=== PATIENT | male | born 1985 | race Caucasian/White ===

== ENCOUNTER → 2022-04-24 | Outpatient (CLI) | payer BC ==
--- NOTE | 2022-04-26 11:18 | US ---
EXAMINATION TYPE: US scrotum with doppler. Grayscale and color Doppler Duplex imaging performed of ed benjamin scrotum. DATE OF EXAM: 04/24/2022 COMPARISON: NONE CLINICAL HISTORY: N44.2 SCROTAL CYST. Scrotal cyst. EXAM MEASUREMENTS: TESTICLES: Right Testicle: 5.3 x 3.6 x 2.9 cm Left Testicle: 4.4 x 3.3 x 2.7 cm EPIDIDYMIS HEAD: Right Epididymis: 1.0 x 1.1 x 1.6 cm Left Epididymis: 0.6 x 1.0 x 1.3 cm Doppler performed to assess for testicular vascularity; bilateral color flow and waveforms are seen. Testicular echotexture is homogenous and symmetric Presence of hydroceles: On right: 2.4 x 2.8 x 0.7 cm. On left: 2.6 x 1.4 x 0.8 cm. Presence of varicoceles: Prominent vessels seen on the right measure 3 mm. Prominent vessels seen on the left measure 3.4 mm. Scanned patient's area of concern midline, just inferior to the testicles:Complex area seen measuri ng 1.7 x 1.2 x 0.9 cm. IMPRESSION: Small hydroceles. No evident intratesticular mass. Nonspecific scrotal focus of hypoechog enicity, follow-up clinically, questionable clinical significance, consider inclusion cyst, follow-up with imaging as indicated.
== END | disposition home or self-care (01) ==
LOC: RADUSWWP 16:44
PROVIDERS: ATTEND Family Medicine
DX: N44.2 Benign cyst of testis (principal)
CPT/HCPCS: 76870; 93975

== ENCOUNTER 2023-12-07 12:56 | Emergency (ER) | payer BC ==
[2023-12-07 13:28] LABS: HCT 41.8 % (39.0-53.0); HGB 13.9 gm/dL (13.0-17.5); MCH 30.2 pg (25.0-35.0); MCHC 33.2 g/dL (31.0-37.0); MCV 91.2 fL (80.0-100.0); Mean Platelet Volume 7.1; Platelet Count 305 k/uL (150-450); RBC 4.59 m/uL (4.30-5.90); WBC 8.1 k/uL (3.8-10.6)
--- NOTE | 2023-12-07 13:32 | ED ---
General Adult HPI - General Chief complaint: Neuro Symptoms/Deficit Stated complaint: Poss Heart Attack Time Seen by Provider: 12/07/23 13:15 Source: patient, RN notes reviewed, old records reviewed Mode of arrival: ambulatory Limitations: no limitations - History of Present Illness Initial comments: 38-year-old male presenting for evaluation of left arm numbness and tingling. Symptoms began just prior to arrival. This is associated with some central chest tightness. No prior history of CVA or CAD. Patient is a current smoker. No associated diaphoresis or vomiting. - Related Data Home Medications Medication Instructions Recorded Confirmed Atorvastatin [Lipitor] 40 mg PO DAILY 12/07/23 12/07/23 Levothyroxine Sodium [Synthroid] 75 mcg PO DAILY 12/07/23 12/07/23 Allergies Allergy/AdvReac Type Severity Reaction Status Date / Time No Known Allergies Allergy Verified 12/07/23 15:27 Review of Systems ROS Statement: Those systems with pertinent positive or pertinent negative responses have been documented in the HPI. ROS Other: All systems not noted in ROS Statement are negative. Past Medical History Past Medical History: Hyperlipidemia, Thyroid Disorder Past Surgical History: Hernia Repair Additional Past Surgical History / Comment(s): anal suregery Smoking Status: Current every day smoker General Exam Limitations: no limitations General appearance: alert, in no apparent distress Head exam: Present: atraumatic, normocephalic Eye exam: Present: normal appearance, PERRL ENT exam: Present: normal exam Neck exam: Present: normal inspection. Absent: tenderness, meningismus Respiratory exam: Present: normal lung sounds bilaterally. Absent: respiratory distress, wheezes Cardiovascular Exam: Present: regular rate, normal rhythm GI/Abdominal exam: Present: soft. Absent: distended, tenderness, guarding Neurological exam: Present: alert, oriented X3, CN II-XII intact, other (NIH of 0). Absent: motor sensory deficit Psychiatric exam: Present: normal affect, normal mood Skin exam: Present: warm, dry, intact. Absent: cyanosis, diaphoretic Course Vital Signs 12/07/23 12/07/23 12/07/23 13:03 14:28 16:32 Temperature 98.3 F Pulse Rate 86 70 71 Respiratory 20 20 18 Rate Blood Pressure 170/79 150/91 137/86 O2 Sat by Pulse 99 98 100 Oximetry 12/07/23 17:43 Temperature 97.6 F Pulse Rate 72 Respiratory 18 Rate Blood Pressure 137/85 O2 Sat by Pulse 97 Oximetry Medical Decision Making - Medical Decision Making Was pt. sent in by a medical professional or institution (ROBERTA Villalta, CCTV TECHNICIAN, urgent care, hospital, or senior living...) When possible be specific @ -No Did you speak to anyone other than the patient for history (EMS, parent, family, police, friend...)? What history was obtained from this source @ -No Did you review nursing and triage notes (agree or disagree)? Why? @ -I reviewed and agree with nursing and triage notes Were old charts reviewed (outside hosp., previous admission, EMS record, old E KG, old radiological studies, urgent care reports/EKG's, senior living records)? Report findings @ -No old charts were reviewed Differential Diagnosis (chest pain, altered mental status, abdominal pain women, abdominal pain men, vaginal bleeding, weakness, fever, dyspnea, syncope, headache, dizziness, GI bleed, back pain, seizure, CVA, palpatations, mental health, musculoskeletal)? @ -Differential Chest Pain: Stable Angina, Unstable Angina, STEMI, NSTEMI Aortic Dissection, Pneumothorax, Musculoskeletal, Esophageal Spasm GERD, Cholecystitis, Pancreatitis, Zoster, this is not meant to be an all-inclusive list. EKG interpreted by me (3pts min.). @ -Sinus rhythm rate of 89, [place] interval 168, QRS duration 104, QTc [address] segment elevation. X-rays interpreted by me (1pt min.). @Chest x-ray negative for acute cardiopulmonary findings. CT interpreted by me (1pt min.). @ -CT brain negative for intracranial hemorrhage or mass effect U/S interpreted by me (1pt. min.). @ -None done What testing was considered but not performed or refused? (CT, X-rays, U/S, labs)? Why? @ -None What meds were considered but not given or refused? Why? @ -None Did you discuss the management of the patient with other professionals (professionals i.e. ROBERTA Villalta, CCTV TECHNICIAN, lab, RT, psych nurse, child protective services social worker, animal care assistant, teacher, corporate responsibility officer, catalytic case operator)? Give summary @ -No Was smoking cessation discussed for >3mins.? @ -No Was critical care preformed (if so, how long)? @ -No Were there social determinants of health that impacted care today? How? (Homelessness, low income, unemployed, alcoholism, drug addiction, transportation, low edu. Level, literacy, decrease access to med. care, longterm, rehab)? @ -No Was there de-escalation of care discussed even if they declined (Discuss DNR or withdrawal of care, Hospice)? DNR status @ -No What co-morbidities impacted this encounter? (DM, HTN, Smoking, COPD, CAD, Cancer, CVA, ARF, Chemo, Hep., AIDS, mental health diagnosis, sleep apnea, morbid obesity)? @ -[Hypertension, current smoking. Was patient admitted / discharged? Hospital course, mention meds given and route, prescriptions, significant lab abnormalities, going to OR and other pertinent info. @ -H 38-year-old male who presents for evaluation of chest tightness, left arm numbness and tingling. No known history of CAD. EKG sinus rhythm without ST segment elevation. Chest x-ray is clear. Patient has normal CBC, normal CMP, negative initial troponin. My plan was to observe this patient for serial cardiac enzymes, telemetry, cardiology consultation. The patient declines but does agree to 3-hour repeat troponin testing. This has been ordered, results pending. Undiagnosed new problem with uncertain prognosis? @ -[No Drug Therapy requiring intensive monitoring for toxicity (Heparin, Nitro, Insulin, Cardizem)? @ -No Were any procedures done? @ -No Diagnosis/symptom? @ -Chest pain Acute, or Chronic, or Acute on Chronic? @ -[Acute Uncomplicated (without systemic symptoms) or Complicated (systemic symptoms)? @ -Default Side effects of treatment? @ -No Exacerbation, Progression, or Severe Exacerbation? @ -No Poses a threat to life or bodily function? How? (Chest pain, [place], [place], pneumonia, PE, COPD, DKA, ARF, appy, cholecystitis, CVA, Diverticulitis, Homicidal, Suicidal, threat to staff... and all critical care pts) @ -Moderate risk - Lab Data Result diagrams: 12/07/23 13:19 12/07/23 13:19 Lab Results 12/07/23 12/07/23 12/07/23 Range/Units 13:19 13:19 13:19 WBC 8.1 (3.8-10.6) k/uL RBC 4.59 (4.30-5.90) m/uL Hgb 13.9 (13.0-17.5) gm/dL Hct 41.8 (39.0-53.0) % MCV 91.2 (80.0-100.0) fL MCH 30.2 (25.0-35.0) pg MCHC 33.2 (31.0-37.0) g/dL RDW 13.0 (11.5-15.5) % Plt Count 305 (150-450) k/uL MPV 7.1 Neutrophils % (Manual) 39 % Lymphocytes % (Manual) 51 % Monocytes % (Manual) 8 % Eosinophils % (Manual) 2 % Neutrophils # (Manual) 3.16 (1.3-7.7) k/uL Lymphocytes # (Manual) 4.13 (1.0-4.8) k/uL Monocytes # (Manual) 0.65 (0-1.0) k/uL Eosinophils # (Manual) 0.16 (0-0.7) k/uL Nucleated RBCs 0 (0-0) /100 WBC Manual Slide Review Performed RBC Morphology Normal PT 10.1 (10.0-12.5) sec INR 0.9 (<1.2) APTT 25.7 (22.0-30.0) sec Sodium 136 L (137-145) mmol/L Potassium 4.1 (3.5-5.1) mmol/L Chloride 104 (98-107) mmol/L Carbon Dioxide 23 (22-30) mmol/L Anion Gap 9 mmol/L BUN 13 (9-20) mg/dL Creatinine 0.66 (0.66-1.25) mg/dL Est GFR (CKD-EPI)AfAm >90 (>60 ml/min/1.73 sqM) Est GFR (CKD-EPI)NonAf >90 (>60 ml/min/1.73 sqM) Glucose 113 H (74-99) mg/dL Calcium 9.5 (8.4-10.2) mg/dL Total Bilirubin 0.5 (0.2-1.3) mg/dL AST 40 (17-59) U/L ALT 58 H (4-49) U/L Alkaline Phosphatase 72 (38-126) U/L Creatine Kinase 357 H (55-170) U/L Troponin I (0.000-0.034) ng/mL Total Protein 7.7 (6.3-8.2) g/dL Albumin 4.8 (3.5-5.0) g/dL 12/07/23 12/07/23 Range/Units 13:19 16:35 WBC (3.8-10.6) k/uL RBC (4.30-5.90) m/uL Hgb (13.0-17.5) gm/dL Hct (39.0-53.0) % MCV (80.0-100.0) fL MCH (25.0-35.0) pg MCHC (31.0-37.0) g/dL RDW (11.5-15.5) % Plt Count (150-450) k/uL MPV Neutrophils % (Manual) % Lymphocytes % (Manual) % Monocytes % (Manual) % Eosinophils % (Manual) % Neutrophils # (Manual) (1.3-7.7) k/uL Lymphocytes # (Manual) (1.0-4.8) k/uL Monocytes # (Manual) (0-1.0) k/uL Eosinophils # (Manual) (0-0.7) k/uL Nucleated RBCs (0-0) /100 WBC Manual Slide Review RBC Morphology PT (10.0-12.5) sec INR (<1.2) APTT (22.0-30.0) sec Sodium (137-145) mmol/L Potassium (3.5-5.1) mmol/L Chloride (98-107) mmol/L Carbon Dioxide (22-30) mmol/L Anion Gap mmol/L BUN (9-20) mg/dL Creatinine (0.66-1.25) mg/dL Est GFR (CKD-EPI)AfAm (>60 ml/min/1.73 sqM) Est GFR (CKD-EPI)NonAf (>60 ml/min/1.73 sqM) Glucose (74-99) mg/dL Calcium (8.4-10.2) mg/dL Total Bilirubin (0.2-1.3) mg/dL AST (17-59) U/L ALT (4-49) U/L Alkaline Phosphatase (38-126) U/L Creatine Kinase (55-170) U/L Troponin I <0.012 <0.012 (0.000-0.034) ng/mL Total Protein (6.3-8.2) g/dL Albumin (3.5-5.0) g/dL Disposition Clinical Impression: Chest pain Disposition: HOME SELF-CARE Condition: Good Instructions (If sedation given, give patient instructions): Chest Pain (ED) Is patient prescribed a controlled substance at d/c from ED?: No Referrals: Nonstaff,Physician [Primary Care Provider] - 1-2 days Jose Harper MD [STAFF PHYSICIAN] - 1-2 days
[2023-12-07 13:36] LABS: INR 0.9 (<1.2); Partial Thromboplastin Time 25.7 sec (22.0-30.0); Prothrombin Time 10.1 sec (10.0-12.5)
--- NOTE | 2023-12-07 13:42 | XR ---
EXAMINATION TYPE: XR chest 2V DATE OF EXAM: 12/07/2023 COMPARISON: None INDICATION: Altered mental status left arm numbness TECHNIQUE: Frontal and lateral views of the chest are obtained. FINDINGS: The heart size is normal. The pulmonary vasculature is normal. The lungs are clear. IMPRESSION: 1. No acute pulmonary process.
[2023-12-07 13:45] LABS: ALT 58 U/L (4-49); AST 40 U/L (17-59); African American GFR (CKD) >90 (>60 ml/min/1.73 sqM); Albumin 4.8 g/dL (3.5-5.0); Alkaline Phosphatase 72 U/L (38-126); Anion Gap 9 mmol/L; Blood Urea Nitrogen 13 mg/dL (9-20); Calcium 9.5 mg/dL (8.4-10.2); Carbon Dioxide 23 mmol/L (22-30); Chloride 104 mmol/L (98-107); Creatine Kinase 357 U/L (55-170); Glucose 113 mg/dL (74-99); Non-African American GFR(CKD) >90 (>60 ml/min/1.73 sqM); Potassium 4.1 mmol/L (3.5-5.1); Sodium 136 mmol/L (137-145); Total Bilirubin 0.5 mg/dL (0.2-1.3); Total Protein 7.7 g/dL (6.3-8.2)
--- NOTE | 2023-12-07 13:45 | CT ---
EXAMINATION TYPE: CT brain wo con DATE OF EXAM: 12/07/2023 COMPARISON: INDICATION: WEAKNESS DLP: 1153.4 mGycm, Automated exposure control for dose reduction was used. CONTRAST: None CT of the brain is performed utilizing 3 mm thick sections through the posterior fossa and 3 mm thick sections through the remaining calvarium. Study is performed within 24 hours of arrival to the hosp [place]. No abnormal hyperdensity is present to suggest an acute intracranial hemorrhage. No mass lesion is evident. No acute infarcts are evident. Ventricles and sulci are appropriate for the patient age. Patent cavum septum lucidum is present, a normal variant. Paranasal sinuses and mastoid air cells within the [id number] are clear. IMPRESSION: 1. No acute intracranial process. Follow-up MRI can be performed as clinically indicated.
[2023-12-07] MEDS: ASPIRIN 325 MG TAB PO STA (15:02)
[2023-12-07 15:05] LABS: Eosinophils # (M) 0.16 k/uL (0-0.7); Lymphocytes # (M) 4.13 k/uL (1.0-4.8); Monocytes # (M) 0.65 k/uL (0-1.0); Neutrophils # (M) 3.16 k/uL (1.3-7.7); Neutrophils % (M) 39 %; Nucleated Red Blood Cells 0 /100 WBC (0-0); RBC Morphology Normal; Total Cells Counted 100
[2023-12-07 16:54] VITALS: RESP 18
[2023-12-07 18:11] VITALS: BP 137/85; PULSE 72; TEMP 97.6
== END 2023-12-07 17:49 | disposition home or self-care (01) ==
LOC: EC 12:56
DX: R07.89 Other chest pain (principal); I10 Essential (primary) hypertension; E78.5 Hyperlipidemia, unspecified; E07.9 Disorder of thyroid, unspecified; F17.200 Nicotine dependence, unspecified, uncomplicated; Z79.890 Hormone replacement therapy; Z79.899 Other long term (current) drug therapy
CPT/HCPCS: 36415; 70450; 71046; 80053; 82550; 84484; 85025; 85610; 85730; 93005; 99285